=== PATIENT | female | born 1945 | race Caucasian/White ===

== ENCOUNTER 2016-09-07 22:41 | Inpatient (IN) | payer OTHER ==
[~2016-09-07] VITALS: Ht 157.5 cm; Wt 64.7 kg
[~2016-09-07 22:41] MED LIST: ANORO ELLIPTA1 EACH IH; ASPIR-LOW81 MG PO; ATENOLOL50 MG PO; BENAZEPRIL HCL20 MG PO; COLACE100 MG PO; CYCLOBENZAPRINE10 MG PO; DITROPAN XL5 MG PO; ESCITALOPRAM OX10 MG PO; GLIPIZIDE XL10 MG PO; GLUCOPHAGE1000 MG PO; GLUCOTROL10 MG PO; HYDROCODON-ACE1 EAC7 PO; LEXAPRO10 MG PO; LOTENSIN20 MG PO; METFORMIN HCL1000 MG PO; MULTIPLE VITAM1 EAC4 PO; NOVOLOG MI100 UNIT/M SC; PERCOCET 5/31 TABLET PO; PRAVACHOL40 MG PO; PRAVASTATIN SOD40 MG PO; TENORMIN50 MG PO
[2016-09-07 23:39] LABS: EOSINOPHIL (%) 0 % (0-5); HEMATOCRIT 42.7 % (36.0-46.0); IMMATURE GRANULOCYTE (%) 0.5 % (0.0-0.7); IMMATURE GRANULOCYTE COUNT 1.1 K/uL; LYMPHOCYTE COUNT 2.3 K/uL (1.0-2.8); MCH 30.1 PG (29.0-34.0); MCHC 34.4 G/DL (30.0-36.0); MCV 87.3 FL (83-99); MEAN PLAT.VOLUME 10.6 uM^3 (9.5-12.4); MONOCYTE (%) 7.9 % (3-12); MONOCYTE COUNT 1.7 K/uL (0-0.8); NEUTROPHIL (%) 81.1 % (45-76); NEUTROPHIL COUNT 17.8 K/uL (1.8-6.4); PLATELET COUNT 222 K/uL (156-360); RBC DIS.WIDTH-CV 13.2 % (11.8-14.6); RBC DIS.WIDTH-SD 41.4 % (39-53); RED BLOOD COUNT 4.89 M/uL (3.80-5.20)
[2016-09-07 23:44] LABS: CHLORIDE 97 mEq/L (99-109); POTASSIUM 5.8 mEq/L (3.7-5.4); SODIUM 134 mEq/L (136-147)
[2016-09-07 23:47] LABS: ANION GAP 13 MEQ/L (2-14)
[2016-09-07 23:49] LABS: GFR ESTIMATE (CALCULATED) 58 mL/min/
[2016-09-07 23:50] LABS: UREA NITROGEN (BUN) 24 mg/dL (9-23)
[2016-09-07 23:57] LABS: TROP-I INTERPRETATION NEGATIVE; TROPONIN-I 0.01 ng/mL (0.0-0.30)
[2016-09-08 00:05] LABS: GLUCOSE 437 mg/dL (70-99)
[2016-09-08 01:18] LABS: POINT-OF-CARE METER ID UU14100415; POINT-OF-CARE USER ID HMLKAV
[2016-09-08] MEDS ORDERED: VALIUM10 MG PO (01:45)
[2016-09-08 03:37] LABS: ADD MIUA? NO; BILIRUBIN NEGATIVE; BLOOD NEGATIVE; COLOR YELLOW ((YELLOW)); GLUCOSE (STRIP) >=1000; KETONES NEGATIVE; LEUKOCYTES NEGATIVE; NITRITE NEGATIVE; PROTEIN (STRIP) NEGATIVE; SPECIFIC GRAVITY 1.021 (1.000-1.030); UCUL ADDED? NO; UROBILINOGEN 0.2 MG/DL (0.2-1.0)
[2016-09-08 04:31] VITALS: BP 119/81
[2016-09-08 06:07] LABS: POINT-OF-CARE METER ID UU13113725
[2016-09-08 07:54] VITALS: BP 108/51
[2016-09-08 10:37] LABS: ANION GAP 16 MEQ/L (2-14); CHLORIDE 97 MEQ/L (99-109); GFR ESTIMATE (CALCULATED) > 59 mL/min/; POTASSIUM 4.8 MEQ/L (3.7-5.4); SAMPLE HEMOLYSIS CHECK 0; SAMPLE ICTERIC CHECK 0; SAMPLE LIPEMIA CHECK 0; SODIUM 133 MEQ/L (136-147); UREA NITROGEN (BUN) 22 mg/dL (9-23)
[2016-09-08 10:40] LABS: GLUCOSE 556 mg/dL (70-99)
[2016-09-08 11:35] VITALS: BP 115/55
[2016-09-08 14:51] LABS: GLUCOSE 452 mg/dL (70-99)
[2016-09-08 15:18] VITALS: BP 120/65
[2016-09-08 16:52] LABS: POINT-OF-CARE METER ID UU13113725
[2016-09-08 19:19] VITALS: BP 100/54
[2016-09-08 23:18] VITALS: BP 96/50
[2016-09-09 03:04] VITALS: BP 102/52
[2016-09-09 06:47] LABS: EOSINOPHIL (%) 0 % (0-5); HEMATOCRIT 39.4 % (36.0-46.0); IMMATURE GRANULOCYTE (%) 0.3 % (0.0-0.7); LYMPHOCYTE COUNT 1.1 K/uL (1.0-2.8); MCH 29.6 PG (29.0-34.0); MCV 89.7 FL (83-99); MEAN PLAT.VOLUME 10.4 uM^3 (9.5-12.4); MONOCYTE (%) 5.9 % (3-12); MONOCYTE COUNT 0.9 K/uL (0-0.8); NEUTROPHIL (%) 86.5 % (45-76); NEUTROPHIL COUNT 12.5 K/uL (1.8-6.4); PLATELET COUNT 166 K/uL (156-360); RBC DIS.WIDTH-CV 13.6 % (11.8-14.6); RBC DIS.WIDTH-SD 44.8 % (39-53); RED BLOOD COUNT 4.39 M/uL (3.80-5.20)
[2016-09-09 06:48] LABS: WHITE BLOOD COUNT 14.4 K/uL (4.1-10.2)
[2016-09-09 07:06] LABS: ANION GAP 7 MEQ/L (2-14); CHLORIDE 104 MEQ/L (99-109); GFR ESTIMATE (CALCULATED) > 59 mL/min/; GLUCOSE 175 mg/dL (70-99); POTASSIUM 4.3 MEQ/L (3.7-5.4); SAMPLE HEMOLYSIS CHECK 0; SAMPLE ICTERIC CHECK 0; SAMPLE LIPEMIA CHECK 0; SODIUM 140 MEQ/L (136-147); UREA NITROGEN (BUN) 18 mg/dL (9-23)
[2016-09-09 08:20] VITALS: BP 101/58
[2016-09-09 09:27] VITALS: BP 102/47
[2016-09-09 10:04] LABS: POINT-OF-CARE METER ID UU13113725
[2016-09-09] MEDS ORDERED: DEXAMETHASONE4 MG PO (13:21)
[2016-09-09] MEDS ORDERED: LEVETIRACETAM500 MG PO (13:22)
[2016-09-09] MEDS ORDERED: GLUCOTROL10 MG PO (14:35)
== END 2016-09-09 15:27 | disposition home health service (06) | DRG 181 ==
LOC: EME 22:41 → EDOF 09-08 03:04 → 5EAST 09-08 03:04
PROVIDERS: Emergency Medicine; Family Medicine; Internal Medicine
DX: C34.91 Malignant neoplasm of unspecified part of right bronchus or lung (principal); C79.31 Secondary malignant neoplasm of brain; G40.89 Other seizures; E11.65 Type 2 diabetes mellitus with hyperglycemia; E87.2 Acidosis; E87.1 Hypo-osmolality and hyponatremia; D72.829 Elevated white blood cell count, unspecified; T38.0X5A Adverse effect of glucocorticoids and synthetic analogues, initial encounter; B37.0 Candidal stomatitis; E87.5 Hyperkalemia; R26.2 Difficulty in walking, not elsewhere classified; I10 Essential (primary) hypertension; R30.0 Dysuria; E78.5 Hyperlipidemia, unspecified; N39.41 Urge incontinence; E11.43 Type 2 diabetes mellitus with diabetic autonomic (poly)neuropathy; Z79.4 Long term (current) use of insulin; F32.9 Major depressive disorder, single episode, unspecified; J44.9 Chronic obstructive pulmonary disease, unspecified; Z87.891 Personal history of nicotine dependence; Z85.828 Personal history of other malignant neoplasm of skin
CPT/HCPCS: 77307; 77334; 80048; 81003; 82948; 84484; 84999; 85025; 99281; 99285; J1100; J1644; J1815; J1953; J7030; J7040; J7050; J8540; S0028

== ENCOUNTER 2016-09-11 13:48 | Inpatient (IN) | payer OTHER ==
[~2016-09-11] VITALS: Ht 157.5 cm; Wt 65.7 kg
[~2016-09-11 13:48] MED LIST changes: +DEXAMETHASONE4 MG PO; +LEVETIRACETAM500 MG PO; +VALIUM10 MG PO
[2016-09-11 14:43] LABS: EOSINOPHIL (%) 0 % (0-5); HEMATOCRIT 44.3 % (36.0-46.0); IMMATURE GRANULOCYTE (%) 0.3 % (0.0-0.7); IMMATURE GRANULOCYTE COUNT 0.6 K/uL; LYMPHOCYTE COUNT 0.5 K/uL (1.0-2.8); MCHC 33.9 G/DL (30.0-36.0); MCV 88.6 FL (83-99); MEAN PLAT.VOLUME 10.9 uM^3 (9.5-12.4); MONOCYTE (%) 3.2 % (3-12); MONOCYTE COUNT 0.6 K/uL (0-0.8); NEUTROPHIL (%) 93.9 % (45-76); PLATELET COUNT 158 K/uL (156-360); RBC DIS.WIDTH-CV 13.8 % (11.8-14.6); RBC DIS.WIDTH-SD 43.9 % (39-53); WHITE BLOOD COUNT 20.2 K/uL (4.1-10.2)
[2016-09-11 14:48] LABS: CHLORIDE 97 mEq/L (99-109); POTASSIUM 5.1 mEq/L (3.7-5.4); SODIUM 134 mEq/L (136-147)
[2016-09-11 14:52] LABS: ANION GAP 16 MEQ/L (2-14)
[2016-09-11 14:54] LABS: GFR ESTIMATE (CALCULATED) 43 mL/min/
[2016-09-11 14:55] LABS: UREA NITROGEN (BUN) 25 mg/dL (9-23)
[2016-09-11 15:00] LABS: GLUCOSE 742 mg/dL (70-99)
[2016-09-11 16:06] LABS: CHLORIDE 100 mEq/L (99-109); POTASSIUM 4.4 mEq/L (3.7-5.4); SODIUM 139 mEq/L (136-147)
[2016-09-11] MEDS ORDERED: GLIPIZIDE10 MG PO (16:07)
[2016-09-11] MEDS ORDERED: NAMENDA10 MG PO (16:07)
[2016-09-11] MEDS ORDERED: NOVOLOG MI100 UNIT/4 SC (16:07)
[2016-09-11 16:09] LABS: ANION GAP 16 MEQ/L (2-14)
[2016-09-11] MEDS ORDERED: VALIUM5 MG PO (16:10)
[2016-09-11 16:11] LABS: GFR ESTIMATE (CALCULATED) 58 mL/min/
[2016-09-11 16:12] LABS: UREA NITROGEN (BUN) 23 mg/dL (9-23)
[2016-09-11 16:18] LABS: GLUCOSE 518 mg/dL (70-99)
[2016-09-11 17:21] LABS: POINT-OF-CARE METER ID UU14100415
[2016-09-11 21:16] VITALS: BP 128/60
[2016-09-11 22:14] LABS: POINT-OF-CARE METER ID UU14162513
[2016-09-11 23:57] VITALS: BP 110/57
[2016-09-12 02:28] LABS: POINT-OF-CARE METER ID UU13113700
[2016-09-12 03:04] LABS: ADD MIUA? NO; BILIRUBIN NEGATIVE; BLOOD NEGATIVE; COLOR YELLOW ((YELLOW)); GLUCOSE (STRIP) >=1000; KETONES NEGATIVE; LEUKOCYTES NEGATIVE; NITRITE NEGATIVE; PH, URINE 5.5 (5-8); PROTEIN (STRIP) NEGATIVE; SPECIFIC GRAVITY 1.032 (1.000-1.030)
[2016-09-12 05:08] VITALS: BP 96/54
[2016-09-12 06:39] LABS: POINT-OF-CARE METER ID UU13113700
[2016-09-12 06:58] LABS: HEMATOCRIT 39.4 % (36.0-46.0); MCH 29.7 PG (29.0-34.0); MCHC 33.5 G/DL (30.0-36.0); MCV 88.7 FL (83-99); MEAN PLAT.VOLUME 10.4 uM^3 (9.5-12.4); PLATELET COUNT 135 K/uL (156-360); RBC DIS.WIDTH-CV 13.7 % (11.8-14.6); RBC DIS.WIDTH-SD 44.8 % (39-53); RED BLOOD COUNT 4.44 M/uL (3.80-5.20)
[2016-09-12 07:24] LABS: ANION GAP 7 MEQ/L (2-14); CHLORIDE 103 MEQ/L (99-109); POTASSIUM 4.2 MEQ/L (3.7-5.4); SAMPLE HEMOLYSIS CHECK 0; SAMPLE ICTERIC CHECK 0; SAMPLE LIPEMIA CHECK 0; SODIUM 138 MEQ/L (136-147)
[2016-09-12 07:31] LABS: GFR ESTIMATE (CALCULATED) > 59 mL/min/; UREA NITROGEN (BUN) 16 mg/dL (9-23)
[2016-09-12 07:32] LABS: GLUCOSE 182 mg/dL (70-99)
[2016-09-12 07:57] VITALS: BP 99/54
[2016-09-12 10:52] LABS: POINT-OF-CARE METER ID UU13113700
[2016-09-12 11:40] LABS: POINT-OF-CARE METER ID UU13113778
[2016-09-12 11:53] VITALS: BP 110/51
[2016-09-12 15:14] LABS: POINT-OF-CARE METER ID UU13113700
[2016-09-12 16:03] VITALS: BP 118/55
[2016-09-12 17:55] LABS: POINT-OF-CARE METER ID UU13113725
[2016-09-12 20:01] VITALS: BP 131/66
[2016-09-12 23:24] VITALS: BP 118/60
[2016-09-13 04:14] VITALS: BP 116/57
[2016-09-13 07:07] LABS: EOSINOPHIL (%) 0 % (0-5); HEMATOCRIT 40.5 % (36.0-46.0); IMMATURE GRANULOCYTE (%) 0.6 % (0.0-0.7); IMMATURE GRANULOCYTE COUNT 0.1 K/uL; LYMPHOCYTE COUNT 0.9 K/uL (1.0-2.8); MCH 30.2 PG (29.0-34.0); MCHC 33.3 G/DL (30.0-36.0); MCV 90.6 FL (83-99); MONOCYTE (%) 3.1 % (3-12); MONOCYTE COUNT 0.4 K/uL (0-0.8); NEUTROPHIL (%) 88.6 % (45-76); NEUTROPHIL COUNT 10.9 K/uL (1.8-6.4); PLATELET COUNT 129 K/uL (156-360); RBC DIS.WIDTH-SD 46.2 % (39-53); RED BLOOD COUNT 4.47 M/uL (3.80-5.20); WHITE BLOOD COUNT 12.4 K/uL (4.1-10.2)
[2016-09-13 07:31] LABS: ANION GAP 11 MEQ/L (2-14); CHLORIDE 106 MEQ/L (99-109); GFR ESTIMATE (CALCULATED) > 59 mL/min/; GLUCOSE 226 mg/dL (70-99); POTASSIUM 4.2 MEQ/L (3.7-5.4); SAMPLE HEMOLYSIS CHECK 0; SAMPLE ICTERIC CHECK 0; SAMPLE LIPEMIA CHECK 0; SODIUM 138 MEQ/L (136-147); UREA NITROGEN (BUN) 12 mg/dL (9-23)
[2016-09-13 09:06] VITALS: BP 110/51
[2016-09-13 09:58] LABS: POINT-OF-CARE METER ID UU13113725
[2016-09-13 11:53] VITALS: BP 127/60
[2016-09-13 17:47] VITALS: BP 114/57
[2016-09-13 19:28] VITALS: BP 105/51
[2016-09-13 23:06] VITALS: BP 125/62
[2016-09-14 03:53] VITALS: BP 106/59
[2016-09-14 07:22] VITALS: BP 109/56
[2016-09-14 11:48] VITALS: BP 124/60
[2016-09-14 15:26] LABS: POINT-OF-CARE METER ID UU13113725
[2016-09-14 15:54] VITALS: BP 124/53
[2016-09-14 18:26] LABS: POINT-OF-CARE METER ID UU13113725
[2016-09-14 19:15] VITALS: BP 123/62
[2016-09-14 22:54] VITALS: BP 115/55
[2016-09-15 02:53] VITALS: BP 119/62
[2016-09-15 06:29] LABS: HEMATOCRIT 38.2 % (36.0-46.0); MCH 29.5 PG (29.0-34.0); MCHC 33.2 G/DL (30.0-36.0); MCV 88.8 FL (83-99); MEAN PLAT.VOLUME 10.2 uM^3 (9.5-12.4); PLATELET COUNT 146 K/uL (156-360); RBC DIS.WIDTH-SD 44.9 % (39-53); WHITE BLOOD COUNT 9.9 K/uL (4.1-10.2)
[2016-09-15 06:55] LABS: ANION GAP 12 MEQ/L (2-14); CHLORIDE 103 MEQ/L (99-109); GFR ESTIMATE (CALCULATED) > 59 mL/min/; GLUCOSE 193 mg/dL (70-99); MAGNESIUM 1.4 mg/dl (1.3-2.7); POTASSIUM 3.8 MEQ/L (3.7-5.4); SAMPLE HEMOLYSIS CHECK 0; SAMPLE ICTERIC CHECK 0; SAMPLE LIPEMIA CHECK 0; SODIUM 139 MEQ/L (136-147); UREA NITROGEN (BUN) 14 mg/dL (9-23)
[2016-09-15 06:58] VITALS: BP 121/58
[2016-09-15 12:02] VITALS: BP 114/71
[2016-09-15 15:07] LABS: POINT-OF-CARE METER ID UU13113725
[2016-09-15 16:54] VITALS: BP 140/63
[2016-09-15 19:24] VITALS: BP 121/62
[2016-09-15 22:30] VITALS: BP 125/64
[2016-09-16 03:49] VITALS: BP 109/52
[2016-09-16 07:42] VITALS: BP 123/58
[2016-09-16 10:26] VITALS: BP 123/63
[2016-09-16 16:40] VITALS: BP 120/65
[2016-09-16 19:31] VITALS: BP 107/64
[2016-09-16 22:44] LABS: POINT-OF-CARE METER ID UU13113725
[2016-09-16 22:57] VITALS: BP 120/62
[2016-09-17 03:05] VITALS: BP 130/66
[2016-09-17 08:25] VITALS: BP 132/60
[2016-09-17 10:16] LABS: POINT-OF-CARE METER ID UU13113725
[2016-09-17 11:45] VITALS: BP 127/59
[2016-09-17 14:06] LABS: POINT-OF-CARE METER ID UU13113725
[2016-09-17 16:20] VITALS: BP 130/65
[2016-09-17 20:19] VITALS: BP 131/66
[2016-09-17 23:07] VITALS: BP 130/61
[2016-09-18 02:54] VITALS: BP 119/56
[2016-09-18 07:09] VITALS: BP 104/52
[2016-09-18 10:45] VITALS: BP 130/44
[2016-09-18] MEDS ORDERED: DEXAMETHASONE4 MG PO (12:37)
[2016-09-18] MEDS ORDERED: NOVOLOG PE100 UNITS/ SC (12:38)
[2016-09-18] MEDS ORDERED: LEVEMIR100 UNIT/2 SC (12:38)
[2016-09-18] MEDS ORDERED: AUGMENTIN875 MG PO (12:39)
[2016-09-18 15:09] VITALS: BP 124/58
[2016-09-18 18:00] LABS: POINT-OF-CARE METER ID UU13113725
[2016-09-18 21:01] LABS: POINT-OF-CARE USER ID 611181321
== END 2016-09-18 21:42 | disposition home health service (06) | DRG 54 ==
LOC: EME 13:48 → EDOF 16:22 → 5WEST 16:22 → EDOF 16:22 → 5WEST 21:05 → 5EAST 09-12 12:56
PROVIDERS: Emergency Medicine; Internal Medicine
DX: C79.31 Secondary malignant neoplasm of brain (principal); E11.00 Type 2 diabetes mellitus with hyperosmolarity without nonketotic hyperglycemic-hyperosmolar coma (NKHHC); J15.9 Unspecified bacterial pneumonia; C34.01 Malignant neoplasm of right main bronchus; R53.1 Weakness; R53.83 Other fatigue; D72.829 Elevated white blood cell count, unspecified; T38.0X5A Adverse effect of glucocorticoids and synthetic analogues, initial encounter; I10 Essential (primary) hypertension; E78.5 Hyperlipidemia, unspecified; G40.909 Epilepsy, unspecified, not intractable, without status epilepticus; G62.9 Polyneuropathy, unspecified; N39.41 Urge incontinence; Z87.891 Personal history of nicotine dependence
CPT/HCPCS: 71010; 71020; 77336; 77412; 77417; 80048; 80048 91; 81003; 82948; 83735; 85025; 85027; 87040; 94799; 97530 GO; 99281; 99285; G0378; G8978 GP CI; G8979 GP CH; G8987 GO CI; G8988 GO CH; J0295; J1644; J1815; J1956; J7030; J7050; J8540

== ENCOUNTER 2016-10-01 13:10 | Emergency (ER) | payer OTHER ==
[~2016-10-01] VITALS: Ht 152.4 cm; Wt 57.0 kg
[~2016-10-01 13:10] MED LIST changes: +AUGMENTIN875 MG PO; +GLIPIZIDE10 MG PO; +LEVEMIR100 UNIT/2 SC; +NAMENDA10 MG PO; +NOVOLOG MI100 UNIT/4 SC; +NOVOLOG PE100 UNITS/ SC; +VALIUM5 MG PO
[2016-10-01 13:22] LABS: BASE EXCESS -4.2 mEq/L (-3 to +3); CARBOXY HGB 1.9 % (0-5); COMMENTS - BLOOD GASES A+C+; METHEMOGLOBIN 1.3 % (0-1.5); O2 FLOW 15 L/MIN; PCO2 30 mm Hg (35-45); PO2 73 mm Hg (80-100); SITE LRA; pH 7.41 (7.35-7.45)
[2016-10-01 13:23] LABS: DEVICE NRBR; TOTAL RESP RATE 40 resp/min
[2016-10-01 13:58] LABS: CREATININE 0.8 mg/dL (0.6-1.3); POTASSIUM 4.4 mEq/L (3.7-5.4)
[2016-10-01 14:23] LABS: HEMATOCRIT 47.7 % (36.0-46.0); MCH 30.3 PG (29.0-34.0); MCV 89.3 FL (83-99); RBC DIS.WIDTH-CV 14.6 % (11.8-14.6); RBC DIS.WIDTH-SD 46.7 % (39-53); RED BLOOD COUNT 5.34 M/uL (3.80-5.20); WHITE BLOOD COUNT 9.5 K/uL (4.1-10.2)
[2016-10-01 14:25] LABS: CHLORIDE 108 mEq/L (99-109); SODIUM 142 mEq/L (136-147)
[2016-10-01 14:27] LABS: GLUCOSE 264 mg/dL (70-99)
[2016-10-01 14:28] LABS: ANION GAP 16 MEQ/L (2-14)
[2016-10-01 14:29] LABS: TOTAL BILIRUBIN 0.8 mg/dL (0.0-1.0)
[2016-10-01 14:31] LABS: ALKALINE PHOSPHATASE 80 IU/L (3-129); GFR ESTIMATE (CALCULATED) 58 mL/min/
[2016-10-01 14:32] LABS: UREA NITROGEN (BUN) 28 mg/dL (9-23)
[2016-10-01 14:40] LABS: TROP-I INTERPRETATION NEGATIVE; TROPONIN-I < 0.01 ng/mL (0.0-0.30)
[2016-10-01 14:44] LABS: ADD MIUA? YES; BILIRUBIN NEGATIVE; BLOOD MODERATE; COLOR DK YELLOW ((YELLOW)); GLUCOSE (STRIP) >=1000; KETONES TRACE; LEUKOCYTES MODERATE; NITRITE POSITIVE; PH, URINE 5.5 (5-8); PROTEIN (STRIP) NEGATIVE; SPECIFIC GRAVITY 1.029 (1.000-1.030); UROBILINOGEN 0.2 MG/DL (0.2-1.0)
[2016-10-01] MEDS ORDERED: LANTUS 3 M100 UNITS1 SC (15:09)
[2016-10-01] MEDS ORDERED: MIRTAZAPINE7.5 MG PO (15:11)
[2016-10-01] MEDS ORDERED: APLISOL5 TUB UNIT ID (15:13)
[2016-10-01] MEDS ORDERED: QUESTRAN PACKET4 GM PO (15:16)
[2016-10-01] MEDS ORDERED: HUMALOG100 UNIT/2 SC (15:17)
[2016-10-01] MEDS ORDERED: FLEET MINERAL133 ML PR (15:19)
[2016-10-01] MEDS ORDERED: DULCOLAX10 MG PR (15:19)
[2016-10-01] MEDS ORDERED: GLUCAGEN1 MG IM (15:20)
[2016-10-01] MEDS ORDERED: GLUTOSE 1537.5 GM PO (15:21)
[2016-10-01] MEDS ORDERED: IMODIUM A-D2 M2 PO (15:22)
[2016-10-01] MEDS ORDERED: PAIN RELIEF650 MG PO (15:24)
[2016-10-01] MEDS ORDERED: MILK OF MAGNESI10 ML PO (15:24)
[2016-10-01 15:42] LABS: EOSINOPHIL (%) 0.2 % (0-5); IMMATURE GRANULOCYTE COUNT 2.9 K/uL; LYMPHOCYTE COUNT 0.4 K/uL (1.0-2.8); MEAN PLAT.VOLUME 10.8 uM^3 (9.5-12.4); MONOCYTE (%) 3.4 % (3-12); MONOCYTE COUNT 0.3 K/uL (0-0.8); NEUTROPHIL (%) 89.6 % (45-76); NEUTROPHIL COUNT 8.5 K/uL (1.8-6.4); PLAT.SUFFICIENCY DECREASED; PLATELET COUNT 83 K/uL (156-360); USER ID WCD
[2016-10-01 16:16] LABS: RED BLOOD CELLS 0-5 /HPF (0-5)
[2016-10-01 16:17] LABS: BACTERIA 3+ /HPF; EPITHELIAL CELLS 1+ /HPF; MUCUS 1+ /LPF; UCUL ADDED? YES
[2016-10-01 16:18] LABS: CASTS NONE SEEN /LPF; CRYSTALS NONE SEEN
[2016-10-01 16:43] LABS: BASE EXCESS -13.9 mEq/L (-3 to +3); BICARBONATE 15.3 mEq/L (22-26); CARBOXY HGB 1.6 % (0-5); METHEMOGLOBIN 1.1 % (0-1.5)
[2016-10-01 16:44] LABS: COMMENTS - BLOOD GASES A+C+; DEVICE 840 VENT; FI02 100 %; MECHANICAL RATE 16 resp/min; MODE A/C; PCO2 47 mm Hg (35-45); PEEP 5 CM/H20; PO2 179 mm Hg (80-100); SITE LR; TIDAL VOLUME 350 ML
[2016-10-01 16:45] LABS: pH 7.12 (7.35-7.45)
[2016-10-01 18:37] VITALS: BP 43/0
== END 2016-10-01 19:35 ==
LOC: EME 13:10
PROVIDERS: Emergency Medicine
DX: A41.9 Sepsis, unspecified organism (principal); R65.20 Severe sepsis without septic shock; J18.9 Pneumonia, unspecified organism; C34.90 Malignant neoplasm of unspecified part of unspecified bronchus or lung; N39.0 Urinary tract infection, site not specified; R06.00 Dyspnea, unspecified; C79.31 Secondary malignant neoplasm of brain; E11.9 Type 2 diabetes mellitus without complications; E78.5 Hyperlipidemia, unspecified; I10 Essential (primary) hypertension; Z86.73 Personal history of transient ischemic attack (TIA), and cerebral infarction without residual deficits; Z87.891 Personal history of nicotine dependence
CPT/HCPCS: 36600; 71010; 80047; 80053; 81003; 82803; 83605; 84484; 85025; 87040; 87070; 87077; 87086; 87186; 87205; 87801; 94002; 94799; 99281; 99285; J2250; J2543; J3370; J7050